=== PATIENT | female | born 1945 | race Hispanic/Latino ===

== ENCOUNTER 2016-11-12 11:39 | Outpatient (CLI) | payer MEDICARE ==
--- NOTE | 2016-11-12 14:22 | XRay Report ---
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 Findings: Incompletely healed or completely healed fracture Colle's distal radius with extension to the articular surface. Normal carpal bones. Arthritis first carpometacarpal joint. Impression Findings as detailed above.
== END 2016-11-12 11:40 | disposition home or self-care (01) ==
LOC: SPVIMAG 11:39
PROVIDERS: ATTEND Internal Medicine
DX: M77.22 Periarthritis, left wrist (principal)

== ENCOUNTER 2020-12-11 10:34 | Outpatient (CLI) | payer MEDICARE ==
--- NOTE | 2020-12-11 14:57 | Mammography Report ---
DIGITAL SCREENING MAMMOGRAM WITH CAD, 12/11/2020 CLINICAL INFORMATION / INDICATION: Routine screening mammography. TECHNIQUE: Digital bilateral 2D mammography was obtained in the craniocaudal and mediolateral obliqu e projections. This examination was interpreted with the benefit of Computer-Aided Detection analysis . COMPARISON: 11/29/2019, 11/18/2018, 10/28/2017 FINDINGS: Breast Density: There are scattered areas of fibroglandular density. No dominant mass, suspicious calcifications, or architectural distortion in either breast. Postsurgical changes again noted in the left breast. IMPRESSION: No mammographic evidence of malignancy. Follow up recommendation: Routine yearly BI-RADS Category 2: Benign. A "normal" or negative report should not discourage follow up or biopsy of a clinically significant f inding. A written summary of these findings will be mailed to the patient. The patient will be entered into a mammography reporting system which will generate a reminder letter for the patient's next appointmen t at the appropriate interval. [employer] recommends yearly mammograms starting at age 40 and continuing as l gonzalo as a woman is in good health. Breast MRI is recommended for women with an approximate 20-25% or greater lifetime risk of breast cancer, including women with a strong family history of breast or ova leonora cancer or who have been treated for Hodgkin's disease. Signer Name: Jessica Curiel MD Signed: 12/11/2020 2:53 PM Workstation Name: [id number]
== END 2020-12-11 10:35 | disposition home or self-care (01) ==
LOC: SPVWC 10:34
PROVIDERS: ATTEND Surgery
DX: Z12.31 Encounter for screening mammogram for malignant neoplasm of breast (principal); N64.89 Other specified disorders of breast
CPT/HCPCS: 77067